=== PATIENT | female | born 1970 | race Caucasian/White ===

== ENCOUNTER 2018-02-23 09:03 | Emergency (ER) | payer OTHER ==
[2018-02-23 09:44] LABS: PLATELET COUNT, AUTOMATED 292 K/uL (150-450)
[2018-02-23 09:50] LABS: INR 0.89
[2018-02-23] MEDS ORDERED: LR(*) 1000 ML BAG 1,000 ML VA PRN (10:00)
[2018-02-23] MEDS ORDERED: ONDANSETRON 4 MG/2 ML VIAL IVP ONE (10:20)
--- NOTE | 2018-02-23 10:20 | ER Report ---
History and Physical Time Seen By MD: 09:25 Hx. of Stated Complaint: started with nausea and vomiting x2, passing of diarrhea and BRBPR approximately every 30 minutes with low abdominal cramping. HPI/ROS CHIEF COMPLAINT: blood in stool HISTORY OF PRESENT ILLNESS: Patient awoke at zero 100 and began vomiting multiple times. Vomit was primarily food contents. Mom was followed by multiple episodes of loose stool starting early this morning patient estimates that she may have had 8-10 episodes of loose stool. Ultimately stool became primarily bloody with bright red blood per rectum that was painless. Patient states she has had 3-4 episodes of this and presents due to concern about the bleeding. Patient has never had any prior significant rectal bleeding. She had does have history of hemorrhoids and occasionally has some blood when she wipes. She has not had any recent travel. She ate at [employer] last night, though her son ate the same food and does not have symptoms. Patient has not had prior abdominal surgeries or significant abdominal pathology. No family history of intestinal disease. Patient didn't denies fever, chest pain, shortness breath, change in urination. The patient currently has mild nausea and lower abdominal cramping. REVIEW OF SYSTEMS: Constitutional: chills Eyes: No discharge. ENT: No sore throat. Cardiovascular: No chest pain, no palpitations. Respiratory: No cough, no shortness of breath. Gastrointestinal: above Genitourinary: No hematuria. Musculoskeletal: No back pain. Skin: No rashes. Neurological: No headache. Remainder of the 14 system rev: Yes Allergies: Coded Allergies: Sulfa (Sulfonamide Antibiotics) (Verified Allergy, Unknown, 02/23/18) Home Meds Active Scripts Ondansetron (ZOFRAN ODT) 4 Mg Tab.rapdis, 4 MG PO Q6H PRN for NAUSEA/VOMITING, #10 TAB.DEBBIE 0 Refills Prov:KATERYNA CASTRO MD 02/23/18 Reported Medications Escitalopram Oxalate (LEXAPRO) 20 Mg Tablet, 10 MG PO QDAY, TAB 02/23/18 Reviewed Nurses Notes: Yes Hx Substance Use Disorder: No Constitutional Vital Sign - Last 24 Hours 02/23/18 02/23/18 02/23/18 02/23/18 09:10 09:11 09:33 09:48 Temp 99.5 Pulse 85 86 Resp 14 B/P (MAP) 126/86 126/86 (99) Pulse Ox 95 91 90 O2 Delivery Room Air 02/23/18 02/23/18 02/23/18 02/23/18 10:18 10:23 10:27 10:38 Pulse 96 85 73 B/P (MAP) 118/65 (82) Pulse Ox 88 100 90 02/23/18 10:53 Pulse Ox 93 Physical Exam General Appearance: [The patient is alert, has no immediate need for airway protection and no signs of toxicity.] [ ] Eyes: Pupils equal and round no pallor or injection. ENT, Mouth: Mucous membranes are moist. Respiratory: There are no retractions, lungs are clear to auscultation. Cardiovascular: Regular rate and rhythm. Gastrointestinal: hyperactive bowel sounds, mild lower abdominal pain without rebound, guarding, peritoneal sgs - minimal ext/int hemorrhoids, mild anal fissure. No clear source of bleed. Neurological: alert, oriented Skin: Warm and dry, no rashes. Musculoskeletal: Neck is supple non tender. Extremities are nontender, nonswollen and have full range of motion. DIFFERENTIAL DIAGNOSIS: After history and physical exam differential diagnosis was considered for gi bleed, diverticulitis, colitis, dehydration or other emergent etiology Medical Decision Making Data Points Result Diagram: 02/23/1892602/23/18926 Laboratory Hematology Test 02/23/18 09:27 Red Blood Count 4.89 M/uL (4.17-5.56) Mean Corpuscular Volume 86.5 fL (80.0-96.0) Mean Corpuscular Hemoglobin 29.0 pg (26.0-33.0) Mean Corpuscular Hemoglobin Concent 33.6 g/dL (32.0-36.0) Red Cell Distribution Width 14.1 % (11.5-14.5) Mean Platelet Volume 8.5 fL (7.2-11.1) Neutrophils (%) (Auto) 83.6 % (39.4-72.5) Lymphocytes (%) (Auto) 9.5 % (17.6-49.6) Monocytes (%) (Auto) 6.4 % (4.1-12.4) Eosinophils (%) (Auto) 0.0 % (0.4-6.7) Basophils (%) (Auto) 0.5 % (0.3-1.4) Nucleated RBC Relative Count (auto) 0.0 /100WBC Neutrophils # (Auto) 13.0 K/uL (2.0-7.4) Lymphocytes # (Auto) 1.5 K/uL (1.3-3.6) Monocytes # (Auto) 1.0 K/uL (0.3-1.0) Eosinophils # (Auto) 0.0 K/uL (0.0-0.5) Basophils # (Auto) 0.1 K/uL (0.0-0.1) Nucleated RBC Absolute Count (auto) 0.00 K/uL Prothrombin Time 12.0 seconds (12.0-14.4) Prothromb Time International Ratio 0.89 Activated Partial Thromboplast Time 24 seconds (23-35) Sodium Level 141 mmol/L (137-145) Potassium Level 3.7 mmol/L (3.5-5.0) Chloride Level 103 mmol/L (98-107) Carbon Dioxide Level 25 mmol/L (22-31) Blood Urea Nitrogen 12 mg/dl (7-18) Creatinine 0.70 mg/dl (0.52-1.04) Glomerular Filtration Rate Calc > 60.0 Random Glucose 138 mg/dl (75-110) Calcium Level 9.7 mg/dl (8.4-10.2) Total Bilirubin 0.3 mg/dl (0.2-1.3) Aspartate Amino Transf (AST/SGOT) 39 U/L (0-35) Alanine Aminotransferase (ALT/SGPT) 41 U/L (0-56) Alkaline Phosphatase 77 U/L (0-126) Total Protein 8.4 g/dl (6.3-8.2) Albumin 4.4 g/dl (3.5-5.0) Lipase 163 U/L (23-300) Chemistry Test 02/23/18 09:27 White Blood Count 15.6 k/uL (4.5-11.0) Red Blood Count 4.89 M/uL (4.17-5.56) Hemoglobin 14.2 g/dL (12.0-16.0) Hematocrit 42.2 % (34.0-47.0) Mean Corpuscular Volume 86.5 fL (80.0-96.0) Mean Corpuscular Hemoglobin 29.0 pg (26.0-33.0) Mean Corpuscular Hemoglobin Concent 33.6 g/dL (32.0-36.0) Red Cell Distribution Width 14.1 % (11.5-14.5) Platelet Count 292 K/uL (150-450) Mean Platelet Volume 8.5 fL (7.2-11.1) Neutrophils (%) (Auto) 83.6 % (39.4-72.5) Lymphocytes (%) (Auto) 9.5 % (17.6-49.6) Monocytes (%) (Auto) 6.4 % (4.1-12.4) Eosinophils (%) (Auto) 0.0 % (0.4-6.7) Basophils (%) (Auto) 0.5 % (0.3-1.4) Nucleated RBC Relative Count (auto) 0.0 /100WBC Neutrophils # (Auto) 13.0 K/uL (2.0-7.4) Lymphocytes # (Auto) 1.5 K/uL (1.3-3.6) Monocytes # (Auto) 1.0 K/uL (0.3-1.0) Eosinophils # (Auto) 0.0 K/uL (0.0-0.5) Basophils # (Auto) 0.1 K/uL (0.0-0.1) Nucleated RBC Absolute Count (auto) 0.00 K/uL Prothrombin Time 12.0 seconds (12.0-14.4) Prothromb Time International Ratio 0.89 Activated Partial Thromboplast Time 24 seconds (23-35) Glomerular Filtration Rate Calc > 60.0 Calcium Level 9.7 mg/dl (8.4-10.2) Total Bilirubin 0.3 mg/dl (0.2-1.3) Aspartate Amino Transf (AST/SGOT) 39 U/L (0-35) Alanine Aminotransferase (ALT/SGPT) 41 U/L (0-56) Alkaline Phosphatase 77 U/L (0-126) Total Protein 8.4 g/dl (6.3-8.2) Albumin 4.4 g/dl (3.5-5.0) Lipase 163 U/L (23-300) Coagulation Test 02/23/18 09:27 Prothrombin Time 12.0 seconds Prothromb Time International Ratio 0.89 Activated Partial Thromboplast Time 24 seconds ED Course/Re-evaluation ED Course Patient presents with signs and symptoms of acute gastroenteritis without peritoneal abdomen, complicated by bright red blood per rectum. Patient does not have further episodes in the ED and feels significantly improved after Zofran and IV fluids. Labs show leukocytosis that is likely acute phase reactant without anemia. No acute abdomen. Tolerates by mouth. Likely food poisoning versus viral gastroenteritis. We'll discharge with recommendation for BRAT diet and supportive treatment. Pt to f/u with pcm for colonoscopy to ensure no sig pathology. Decision to Disposition Date: Feb 23, 2018 Decision to Disposition Time: 11:15 Depart Departure Latest Vital Signs Vital Signs Date Time Temp Pulse Resp B/P (MAP) Pulse Ox O2 Delivery O2 Flow Rate FiO2 02/23/18 10:53 93 02/23/18 10:38 73 02/23/18 10:27 118/65 (82) 02/23/18 09:10 99.5 14 Room Air Impression: Primary Impression: Gastroenteritis Additional Impression: GI bleed Condition: Improved Disposition: HOME OR SELF-CARE Referrals: FELIPE SMITH APRN [employer] (PCP) 5 Days Follow up for re-evaluation and scheduling of colonoscopy because of your bleeding New Scripts Ondansetron (ZOFRAN ODT) 4 Mg Tab.rapdis 4 MG PO Q6H PRN for NAUSEA/VOMITING, #10 TAB.DEBBIE 0 Refills Prov: KATERYNA CASTRO MD 02/23/18 Patient Instructions: Gastroenteritis (ED), Rectal Bleeding (ED) Problem Qualifiers Additional Impression: GI bleed GI bleed type/associated pathology: gastritis Gastritis type: unspecified gastritis Qualified Codes: K29.71 - Gastritis, unspecified, with bleeding KATERYNA CASTRO MD Feb 23, 2018 10:20
[2018-02-23] MEDS ORDERED: ESCI20TA38 PO (11:03)
[2018-02-23] MEDS ORDERED: ONDA4TAB PO (11:18)
[2018-02-23 11:22] VITALS: BP 115/75
== END 2018-02-23 11:32 | disposition home or self-care (01) ==
LOC: ER 09:59
DX: K29.71 Gastritis, unspecified, with bleeding (principal); K52.9 Noninfective gastroenteritis and colitis, unspecified
CPT/HCPCS: 83690; 85025; 85610; 85730; 86850; 86900; 86901; 96361; 96374; 99284; J2405; 82040; 82247; 82310; 82374; 82435; 82565; 82947; 84075; 84132; 84155; 84295; 84450; 84460; 84520